=== PATIENT | female | born 1955 | race Caucasian/White ===

== ENCOUNTER 2019-10-06 10:30 | Observation (INO) | payer BC ==
[2019-10-06] MEDS ORDERED: METOPROLOL TAR 50 MG TAB ONE ×2 (11:14→11:15)
[2019-10-06 11:26] LABS: Absolute Lymphocytes (CBC) 1.8 K/uL (0.7-4.9); Basophils % 0.9 % (0-1.3); Hematocrit 38.8 % (36.0-45.0); Lymphocytes % 23.4 % (15.3-44.8); MPV 7.8 fL (7.6-11.3); RBC Red Blood Cell Count 4.44 M/uL (3.86-4.86)
[2019-10-06 11:40] LABS: Protime INR 1.04
--- NOTE | 2019-10-06 11:47 | ER ---
Nurse's Notes [facility] Name: Angela Walker Age: 64 yrs Sex: Female : 1955 Arrival Date: 10/06/2019 Time: 10:35 Bed 2 Private MD: Diagnosis: Chest pain, unspecified;Angina pectoris;Dyspnea;Essential (primary) hypertension Presentation: 10/06 10:37 Presenting complaint: Substernal chest pressure that radiates to right neck since last hb night. Also reports mild SOB. Denies cough/fever. Transition of care: patient was not received from another setting of care. Onset of symptoms was October 05, 2019. Risk Assessment: Do you want to hurt yourself or someone else? Patient reports no desire to harm self or others. Care prior to arrival: None. 10:37 Method Of Arrival: Ambulatory hb 10:37 Acuity: ANASTASIA 3 hb 10:49 Initial Sepsis Screen: Does the patient meet any 2 criteria? No. Patient's initial ph sepsis screen is negative. Does the patient have a suspected source of infection? No. Patient's initial sepsis screen is negative. Historical: - Allergies: 10:40 Latex, Natural Rubber; hb - Home Meds: 10:40 metoprolol tartrate 50 mg Oral tab 1 tab 2 times per day [Active]; etodolac 500 mg Oral hb tab as needed [Active]; - PMHx: 10:40 Arthritis; RAPID HEART RATE; Sleep Apnea; hb - PSHx: 10:40 Tubal ligation; ROTATOR CUFF; hb - Immunization history:: Adult Immunizations up to date. - Social history:: Smoking status: Patient/guardian denies using tobacco. - Ebola Screening: : No symptoms or risks identified at this time. - Family history:: not pertinent. Screenin:48 Abuse screen: Denies threats or abuse. Denies injuries from another. Nutritional ph screening: No deficits noted. Tuberculosis screening: No symptoms or risk factors identified. Fall Risk None identified. Assessment: 11:25 General: Appears in no apparent distress. comfortable, obese, well groomed, Behavior is ph calm, cooperative, appropriate for age, Denies fever, feeling ill. Pain: Complains of pain in chest Pain radiates to neck Pain currently is 1 out of 10 on a pain scale. Quality of pain is described as pressure, Pain began 1 day ago. Neuro: Level of Consciousness is awake, alert, obeys commands, Oriented to person, place, time, situation, Denies weakness dizziness. Cardiovascular: Reports chest pain, shortness of breath, Denies fatigue, lightheadedness, nausea, vomiting, Capillary refill < 3 seconds in bilateral fingers Patient's skin is warm and dry. Chest pain quality is pressure, is located in substernal area radiates to right neck. Respiratory: Reports shortness of breath on exertion Airway is patent Respiratory effort is even, unlabored, Respiratory pattern is regular, symmetrical. GI: No signs and/or symptoms were reported involving the gastrointestinal system. Derm: Skin is intact, Skin is pink, warm \T\ dry. Musculoskeletal: Circulation, motion, and sensation intact. Range of motion: intact in all extremities. 12:30 Reassessment: Patient appears in no apparent distress at this time. Patient and/or ph family updated on plan of care and expected duration. Pain level reassessed. Patient is alert, oriented x 3, equal unlabored respirations, skin warm/dry/pink. 13:30 Reassessment: Patient appears in no apparent distress at this time. Patient and/or ph family updated on plan of care and expected duration. Pain level reassessed. Patient is alert, oriented x 3, equal unlabored respirations, skin warm/dry/pink. 14:30 Reassessment: Patient appears in no apparent distress at this time. No changes from ph previously documented assessment. Patient and/or family updated on plan of care and expected duration. Pain level reassessed. Patient is alert, oriented x 3, equal unlabored respirations, skin warm/dry/pink. 15:26 Reassessment: Patient appears in no apparent distress at this time. Patient and/or ph family updated on plan of care and expected duration. Pain level reassessed. Patient is alert, oriented x 3, equal unlabored respirations, skin warm/dry/pink. Report called to Lea AMIN. Vital Signs: 10:38 BP 157 / 80; Pulse 75; Resp 16; Temp 97.3; Pulse Ox 97% on R/A; Weight 103.87 kg; hb Height 5 ft. 3 in. (160.02 cm); Pain 2/10; 11:45 BP 148 / 78; Pulse 70; Resp 18; Pulse Ox 98% on R/A; ph 13:18 BP 140 / 69; Pulse 69; Resp 18; Pulse Ox 98% on R/A; Pain 1/10; ph 14:19 BP 120 / 67; Pulse 66; Resp 18; Temp 97.2; Pulse Ox 98% on R/A; ph 15:27 BP 132 / 72; Pulse 69; Resp 18; Temp 97.2; Pulse Ox 98% on R/A; ph 10:38 Body Mass Index 40.57 (103.87 kg, 160.02 cm) hb ED Course: 10:35 Patient arrived in ED. mr 10:38 Triage completed. hb 10:38 Arm band placed on. hb 10:43 Sonya Jaime, RN is Primary Nurse. ph 10:48 Patient has correct armband on for positive identification. Bed in low position. Call ph light in reach. Side rails up X 1. playground monitor on. Pulse ox on. NIBP on. Door closed. Noise minimized. Warm blanket given. 10:49 Delio Waterman MD is Attending Physician. marisol 11:10 Inserted saline lock: 22 gauge in right antecubital area, using aseptic technique. ph Blood collected. Patient maintains SpO2 saturation greater than 95% on room air. 11:19 EKG done, by cytotechnologist/histotechnologist. reviewed by Delio Waterman MD. at1 11:40 Perry Shrestha is Hospitalizing Provider. marisol 11:41 No provider procedures requiring assistance completed. ph 15:30 Patient transferred, IV remains in place. ph Administered Medications: 11:40 Not Given (took 325 at home this am): Aspirin 162 mg PO once ph 13:18 Drug: PlaVIX 300 mg Route: PO; ph 15:28 Follow up: Response: No adverse reaction ph 13:18 Drug: Lovenox 100 mg Route: Sub-Q; Site: right lower abdomen; ph 15:28 Follow up: Response: No adverse reaction ph 13:18 Drug: Pepcid 20 mg Route: IVP; Site: right antecubital; ph 15:28 Follow up: Response: No adverse reaction ph 14:42 Not Given (Physician Discretion): Lopressor (metoprolol TARTRATE) 50 mg PO once jl7 Outcome: 11:40 Decision to Hospitalize by Provider. marisol 15:29 Admitted to Tele accompanied by tech, via wheelchair, room 201, with chart, Report ph called to Lea AMIN 15:29 Condition: stable 15:29 Instructed on the need for admit. 15:52 Patient left the ED. ph Signatures: Delio Waterman MD MD cha Rivera, Shayla Ev Gupta, veterinary attendant EKG Tat1 Sonya Jaime, BRENNAN RN ph Rossy Solorio RN RN Stanislav Warner RN jl7
--- NOTE | 2019-10-06 11:47 | EDPHYS ---
Physician Documentation [facility] Name: Angela Walker Age: 64 yrs Sex: Female : 1955 Arrival Date: 10/06/2019 Time: 10:35 Bed 2 Private MD: ED Physician Delio Waterman HPI: 10/06 11:37 This 64 yrs old Female presents to ER via Ambulatory with complaints of Chest marisol Pressure. 11:37 The patient or guardian reports chest pain that is located primarily in the substernal marisol area. Onset: 2 day(s) ago. The pain radiates to Associated signs and symptoms: The patient has no apparent associated signs or symptoms. The chest pain is described as a pressure. Severity of pain: At its worst the pain was mild in the emergency department the pain is unchanged. The patient has not experienced similar symptoms in the past. Historical: - Allergies: 10:40 Latex, Natural Rubber; hb - Home Meds: 10:40 metoprolol tartrate 50 mg Oral tab 1 tab 2 times per day [Active]; etodolac 500 mg Oral hb tab as needed [Active]; - PMHx: 10:40 Arthritis; RAPID HEART RATE; Sleep Apnea; hb - PSHx: 10:40 Tubal ligation; ROTATOR CUFF; hb - Immunization history:: Adult Immunizations up to date. - Social history:: Smoking status: Patient/guardian denies using tobacco. - Ebola Screening: : No symptoms or risks identified at this time. - Family history:: not pertinent. ROS: 11:37 Constitutional: Negative for fever, chills, and weight loss, Eyes: Negative for injury, marisol pain, redness, and discharge, ENT: Negative for injury, pain, and discharge, Neck: Negative for injury, pain, and swelling. 11:37 Cardiovascular: Positive for chest pain, of the chest. 11:37 Respiratory: Positive for shortness of breath. Exam: 11:37 Constitutional: This is a well developed, well nourished patient who is awake, alert, marisol and in no acute distress. Head/Face: Normocephalic, atraumatic. Eyes: Pupils equal round and reactive to light, extra-ocular motions intact. Lids and lashes normal. Conjunctiva and sclera are non-icteric and not injected. Cornea within normal limits. Periorbital areas with no swelling, redness, or edema. ENT: Nares patent. No nasal discharge, no septal abnormalities noted. Tympanic membranes are normal and external auditory canals are clear. Oropharynx with no redness, swelling, or masses, exudates, or evidence of obstruction, uvula midline. Mucous membranes moist. Neck: Trachea midline, no thyromegaly or masses palpated, and no cervical lymphadenopathy. Supple, full range of motion without nuchal rigidity, or vertebral point tenderness. No Meningismus. Chest/axilla: Normal chest wall appearance and motion. Nontender with no deformity. No lesions are appreciated. Cardiovascular: Regular rate and rhythm with a normal S1 and S2. No gallops, murmurs, or rubs. Normal PMI, no JVD. No pulse deficits. Respiratory: Lungs have equal breath sounds bilaterally, clear to auscultation and percussion. No rales, rhonchi or wheezes noted. No increased work of breathing, no retractions or nasal flaring. Abdomen/GI: Soft, non-tender, with normal bowel sounds. No distension or tympany. No guarding or rebound. No evidence of tenderness throughout. Back: No spinal tenderness. No costovertebral tenderness. Full range of motion. Skin: Warm, dry with normal turgor. Normal color with no rashes, no lesions, and no evidence of cellulitis. MS/ Extremity: Pulses equal, no cyanosis. Neurovascular intact. Full, normal range of motion. Neuro: Awake and alert, GCS 15, oriented to person, place, time, and situation. Cranial nerves II-XII grossly intact. Motor strength 5/5 in all extremities. Sensory grossly intact. Cerebellar exam normal. Normal gait. Psych: Awake, alert, with orientation to person, place and time. Behavior, mood, and affect are within normal limits. 11:37 Musculoskeletal/extremity: DVT Exam: No signs of deep vein thrombosis. no pain, no swelling, no tenderness, negative Homans' sign noted on exam, no appreciated bluish discoloration, no erythema, no increased warmth. Vital Signs: 10:38 BP 157 / 80; Pulse 75; Resp 16; Temp 97.3; Pulse Ox 97% on R/A; Weight 103.87 kg; hb Height 5 ft. 3 in. (160.02 cm); Pain 2/10; 11:45 BP 148 / 78; Pulse 70; Resp 18; Pulse Ox 98% on R/A; ph 13:18 BP 140 / 69; Pulse 69; Resp 18; Pulse Ox 98% on R/A; Pain 1/10; ph 14:19 BP 120 / 67; Pulse 66; Resp 18; Temp 97.2; Pulse Ox 98% on R/A; ph 15:27 BP 132 / 72; Pulse 69; Resp 18; Temp 97.2; Pulse Ox 98% on R/A; ph 10:38 Body Mass Index 40.57 (103.87 kg, 160.02 cm) hb MDM: 10:49 Patient medically screened. [facility] 11:39 Data reviewed: vital signs, nurses notes, lab test result(s), EKG, radiologic studies, marisol plain films. 10/06 10:51 Order name: Basic Metabolic Panel [facility] 10/06 10:51 Order name: CBC with Diff [facility] 10/06 10:51 Order name: LFT's [facility] 10/06 10:51 Order name: Magnesium [facility] 10/06 10:51 Order name: NT PRO-BNP [facility] 10/06 10:51 Order name: PT-INR [facility] 10/06 10:51 Order name: Troponin (emerg Dept Use Only) [facility] 10/06 10:51 Order name: TSH [facility] 10/06 10:51 Order name: Lipase [facility] 10/06 11:38 Order name: CBC with Automated Diff; Complete Time: 11:44 [facility] 10/06 11:43 Order name: Urine Dipstick--Ancillary (enter results) 10/06 11:51 Order name: Basic Metabolic Panel; Complete Time: 12:43 [facility] 10/06 11:51 Order name: Liver (Hepatic) Function; Complete Time: 12:43 [facility] 10/06 11:51 Order name: Troponin (Emerg Dept Use Only); Complete Time: 12:43 [facility] 10/06 10:51 Order name: XRAY Chest (1 view) [facility] 10/06 10:51 Order name: EKG; Complete Time: 10:54 [facility] 10/06 10:51 Order name: Cardiac monitoring; Complete Time: 11:27 [facility] 10/06 11:44 Order name: Echo w/ Doppler [facility] 10/06 11:51 Order name: NT PRO-BNP; Complete Time: 12:43 [facility] 10/06 11:51 Order name: Magnesium; Complete Time: 12:43 [facility] 10/06 11:51 Order name: Lipase; Complete Time: 12:43 [facility] 10/06 11:51 Order name: Thyroid Stimulating Hormone; Complete Time: 12:43 [facility] 10/06 11:51 Order name: Protime (+INR); Complete Time: 12:43 [facility] 10/06 11:51 Order name: Urine Dipstick-Ancillary; Complete Time: 12:43 [facility] 10/06 12:23 Order name: RAD; Complete Time: 12:43 [facility] 10/06 10:51 Order name: EKG - Nurse/Tech; Complete Time: 11:27 [facility] 10/06 10:51 Order name: IV Saline Lock; Complete Time: 11:27 [facility] 10/06 10:51 Order name: Labs collected and sent; Complete Time: 11:27 [facility] 10/06 10:51 Order name: O2 Per Protocol; Complete Time: 11:27 [facility] 10/06 10:51 Order name: O2 Sat Monitoring; Complete Time: 11:27 [facility] 10/06 10:51 Order name: Urine Dipstick-Ancillary (obtain specimen); Complete Time: 11:40 [facility] Administered Medications: 11:40 Not Given (took 325 at home this am): Aspirin 162 mg PO once ph 13:18 Drug: PlaVIX 300 mg Route: PO; ph 15:28 Follow up: Response: No adverse reaction ph 13:18 Drug: Lovenox 100 mg Route: Sub-Q; Site: right lower abdomen; ph 15:28 Follow up: Response: No adverse reaction ph 13:18 Drug: Pepcid 20 mg Route: IVP; Site: right antecubital; ph 15:28 Follow up: Response: No adverse reaction ph 14:42 Not Given (Physician Discretion): Lopressor (metoprolol TARTRATE) 50 mg PO once jl7 Disposition: 10/06/19 11:40 Hospitalization ordered by Perry Shrestha for Inpatient Admission. Preliminary diagnosis are Chest pain, unspecified, Angina pectoris, Dyspnea, Essential (primary) hypertension. - Bed requested for Telemetry/MedSurg (Inpatient). - Status is Inpatient Admission. ph - Condition is Stable. - Problem is new. - Symptoms have improved. UTI on Admission? No Signatures: Dispatcher [employer] EDMS DirriJudith martinez Corey, MD MD cha Hall, Patricia, RN RN ph Rossy Solorio, RN RN Stanislav Warner RN jl7 Corrections: (The following items were deleted from the chart) 13:36 11:40 Hospitalization Ordered by Perry Shrestha for Inpatient Admission. Preliminary bd diagnosis is Chest pain, unspecified; Angina pectoris; Dyspnea; Essential (primary) hypertension. Bed requested for Telemetry/MedSurg (Inpatient). Status is Inpatient Admission. Condition is Stable. Problem is new. Symptoms have improved. UTI on Admission? No. marisol 15:52 13:36 10/06/2019 11:40 Hospitalization Ordered by Perry Shrestha for Inpatient ph Admission. Preliminary diagnosis is Chest pain, unspecified; Angina pectoris; Dyspnea; Essential (primary) hypertension. Bed requested for Telemetry/MedSurg (Inpatient). Status is Inpatient Admission. Condition is Stable. Problem is new. Symptoms have improved. UTI on Admission? No. bd
[2019-10-06 11:50] LABS: ALT/SGPT 39 U/L (12-78); AST/SGOT 16 U/L (15-37); Albumin 3.8 g/dL (3.4-5.0); Alkaline Phosphatase 56 U/L (45-117); BUN Blood Urea Nitrogen 9 mg/dL (7-18); Bicarbonate 28 mmol/L (21-32); Bilirubin Direct 0.1 mg/dL (0-0.2); Bilirubin Total 0.6 mg/dL (0.2-1.0); Glucose Level 111 mg/dL (74-106); Lipase 175 U/L (73-393); Magnesium 2.4 mg/dL (1.8-2.4); NT PRO-BNP 112 pg/mL (<125); Potassium 4.2 mmol/L (3.5-5.1); Protein, Total 7.3 g/dL (6.4-8.2); Sodium Level 142 mmol/L (136-145); Troponin (Emerg Dept Use Only) < 0.02 ng/mL (0.0-0.045)
[2019-10-06 11:50] LABS: Urine Blood TRACE (NEG); Urine Glucose NEGATIVE (NEG); Urine Protein NEGATIVE (NEG)
--- NOTE | 2019-10-06 12:13 | RAD REPORT ---
EXAM DESCRIPTION: RAD - Chest Single View - 10/06/2019 11:53 am CLINICAL HISTORY: COUGH Chest pain. COMPARISON: Chest Single View dated 11/03/2016 FINDINGS: Portable technique limits examination quality. The lungs are grossly clear. The heart is normal in size. No displaced fractures. IMPRESSION: No acute intrathoracic process suspected.
[2019-10-06] MEDS ORDERED: CLOPIDOGREL 75 MG TABLET ONE (12:53)
[2019-10-06] MEDS ORDERED: FAMOTIDINE 20 MG/2 ML VIAL IV ONE (12:54)
[2019-10-06] MEDS ORDERED: ENOXAPARIN 100 MG/ML SYR SQ ONE (12:54)
[2019-10-06] MEDS ORDERED: ACETAMINOPHEN 500 MG TAB PO PRN (15:34)
[2019-10-06] MEDS ORDERED: NITROGLYCERIN 0.4 MG/TAB SL PRN (15:34)
--- NOTE | 2019-10-06 16:02 | EKG ---
Test Date: 2019-10-06 Test Time: 11:04:21 Building Carpenter Helper: LEVAR MEASUREMENT RESULTS: Intervals: Rate: 66 AK: 162 QRSD: 154 QT: 420 QTc: 440 [place]: P: 57 AK: 162 QRS: -38 T: 91 INTERPRETIVE STATEMENTS: Normal sinus rhythm Left axis deviation Left bundle branch block Abnormal ECG Compared to ECG 11/23/2016 23:48:25 Left-axis deviation now present Sinus bradycardia no longer present Right superior axis no longer present Electronically Signed On 10-06-19 16:01:30 MILL ORDER SCHEDULER by Marko Nascimento
[2019-10-06 16:29] VITALS: BMI 39.2
[2019-10-06] MEDS: METOPROLOL TAR 50 MG TAB PO SCH (17:30)
--- NOTE | 2019-10-06 17:49 | P.HP ---
Certification for Inpatient Patient admitted to: Observation With expected LOS: <2 Midnights Practitioner: I am a practitioner with admitting privileges, knowledge of patient current condition, hospital course, and medical plan of care. Services: Services provided to patient in accordance with Admission requirements found in Title 42 Section 412.3 of the Code of Federal Regulations Patient History Date of Service: 10/06/19 Reason for admission: Chest pressure History of Present Illness: 64-year-old woman with a history of SVT in the past presented to the ED with complaint of chest pressure of onset 2 days ago. Patient states that her symptoms are also associated with intermittent palpation. She has had similar symptoms in the past which was evaluated with his nuclear stress test, and event monitor. She stated at one point her hl7 developer referred her to tobacco prevention health educator to be evaluated for cardiac ablation. In the ED, EKG reported left bundle branch block which is old. Initial troponin is negative. Chest x-ray demonstrates no acute change. CBC and BMP unremarkable. Patient is placed under observation for ACS rule out. Allergies Latex, Natural Rubber Allergy (Verified 11/03/16 19:32) Rash Home Medications: Metoprolol Tartrate 50 mg PO BID 6AM 6PM 10/06/19 Nitroglycerin [Nitrostat*] 0.4 mg SL UD PRN #30 tab 10/07/19 - Past Medical/Surgical History Has patient received pneumonia vaccine in the past: No Diabetic: No -: arthritis -: sleep apnea -: tubal ligation -: right side rotator cuff sx - Family History Mother -: Diabetes - Social History Smoking Status: Never smoker Alcohol use: Yes CD- Drugs: No Caffeine use: Yes Place of Residence: Home Review of Systems Other: General: No fever, no malaise, no unintentional weight loss. Eyes: No eye discharge, Respiratory: No cough, no shortness of breath. CVS: No lightheadedness. GI: No abdominal pain, no nausea no vomit, no constipation, no diarrhea. Genitourinary: No dysuria, no urinary frequency, no incontinence, no hematuria. Musculoskeletal: No joint pains, or joint swelling, no gait instability. Neurology: No headache, no asymmetric, weakness, no problem with swallowing. Except as documented, all other systems reviewed and negative. Physical Examination - Vital Signs Temperature: 98.1 F Blood Pressure: 139/69 Pulse: 88 Respirations: 15 Pulse Ox (%): 97 - Physical Exam General: Alert, In no apparent distress, Oriented x3, Obese HEENT: Normocephalic, PERRLA, Mucous membr. moist/pink Neck: Supple, JVD not distended Respiratory: Clear to auscultation bilaterally, Normal air movement, Diminished Cardiovascular: No edema, Regular rate/rhythm, Normal S1 S2, No murmurs Capillary refill: <2 Seconds Gastrointestinal: Normal bowel sounds, Soft and benign, No tenderness Musculoskeletal: No swelling Integumentary: No rashes Neurological: Normal speech, Normal strength at 5/5 x4 extr - Studies Laboratory Data (last 24 hrs) 10/06/19 11:10: PT 12.3, INR 1.04 10/06/19 11:10: WBC 7.8, Hgb 13.7, Hct 38.8, Plt Count 231 10/06/19 11:10: Sodium 142, Potassium 4.2, BUN 9, Creatinine 0.78, Glucose 111 H , Magnesium 2.4, Total Bilirubin 0.6, AST 16, ALT 39, Alkaline Phosphatase 56, Lipase 175 Assessment and Plan - Problems (Diagnosis) (1) Chest pain Status: Acute (2) Left bundle branch block Status: Chronic (3) Obesity Status: Chronic - Plan Place under observation Telemetry Trend troponin Cardiologic consult Screen for risk factors-check lipid profile Treat hypertension Nuclear stress test in am. Obtain echocardiogram. - Advance Directives Does patient have a Living Will: No Does patient have a Durable POA for Healthcare: No
[2019-10-06 18:56] LABS: HDL Cholesterol 49 mg/dL (40-60); LDL Cholesterol, Calculated 124 (<130); Troponin I < 0.02 ng/mL (0.0-0.045)
--- NOTE | 2019-10-06 21:08 | CON ---
History Of Present Illness: Ms. Walker is 64. She came to the hospital because of chest pain. The chest pain is atypical, fleeting pain, sometimes there is pressure, sometimes she feels her heart pa lpitate. We discovered SVT in the past, but there was not enough of it to warrant doing an ablation when she was given metoprolol and she has done very well, taking metoprolol. She has no history of m yocardial infarction, stroke, vascular disease. No diabetes. No dyslipidemia. She uses no tobacco, no alcohol, no illegal drugs. Physical Examination: Vital Signs: 5 feet 3 inches, 221 pounds. HEENT: Unremarkable. Lungs: Clear. Heart: Within normal limits. Abdomen: Soft. Extremities: Mild edema, distal pulses palpable. Allergies: SHE IS ALLERGIC TO LATEX AND NATURAL RUBBER, BUT NO MEDICATIONS. Diagnostic Studies: Her electrocardiogram shows sinus rhythm with left bundle-branch block. Recommendation: I have recommended to Ms. Walker that we do a pharmacologic nuclear stress test bogdan orrow. We will see if there is any sign of coronary atherosclerosis and if it is abnormal, we will r ecommend doing a cardiac cath the following day. ZACKARY/LORIE Voice ID: [id number] Report ID: [id number]
[2019-10-07 04:02] LABS: Absolute Lymphocytes (CBC) 2.7 K/uL (0.7-4.9); Basophils % 0.7 % (0-1.3); Hematocrit 37.6 % (36.0-45.0); Lymphocytes % 33.5 % (15.3-44.8); MPV 7.9 fL (7.6-11.3); RBC Red Blood Cell Count 4.26 M/uL (3.86-4.86)
[2019-10-07 04:17] LABS: Potassium 3.8 mmol/L (3.5-5.1)
[2019-10-07] MEDS: METOPROLOL TAR 50 MG TAB PO SCH ×2 (06:10→17:39)
[2019-10-07 06:14] VITALS: O2SAT 96
[2019-10-07] MEDS ORDERED: REGADENOSON 0.4 MG/5 ML SYR IV ONE (08:06)
[2019-10-07] MEDS ORDERED: ENOXAPARIN 40 MG/0.4 ML SQ SCH (09:00)
[2019-10-07] MEDS ORDERED: ASPIRIN EC 81 MG TAB PO SCH (09:00)
--- NOTE | 2019-10-07 12:07 | RAD REPORT ---
EXAM DESCRIPTION: NM - Rest Stress Cardiac Imaging - 10/07/2019 11:22 am CLINICAL HISTORY: Chest pain. COMPARISON: None. TECHNIQUE: The patient was administered approximately 10mCi of Tc 99m Sestamibi prior to resting SPE CT imaging of the heart. The patient was then administered approximately 30 mCi of Tc 99m Sestamibi f ollowing exercise or pharmacologic stress. Multiplanar SPECT images were reviewed. FINDINGS: There is uniformity of radiotracer uptake involving the entire left ventricular myocardiu m on rest and stress images. The left ventricular ejection fraction equals 59% IMPRESSION: Negative for a myocardial perfusion defect
--- NOTE | 2019-10-07 12:49 | P.DS ---
Admission Date: 10/06/19 Discharge Date: 10/07/19 Disposition: ROUTINE DISCHARGE Discharge Condition: GOOD Reason for Admission: Chest pressure Consultations: Cardiology - Problems (1) Chest pain Current Visit: Yes Status: Acute (2) Left bundle branch block Current Visit: Yes Status: Chronic (3) Obesity Current Visit: Yes Status: Chronic Brief History of Present Illness: 64-year-old woman with a history of SVT in the past presented to the ED with complaint of chest pressure of onset 2 days ago. Patient stated that her symptoms were also associated with intermittent palpation. She has had similar symptoms in the past which was evaluated with a nuclear stress test, and event monitor. She stated at one point her compensation advisor referred her to armature balancer to be evaluated for cardiac ablation. In the ED, EKG reported left bundle branch block which is old. Initial troponin was negative. Chest x-ray demonstrated no acute change. CBC and BMP unremarkable. Patient was placed under observation for ACS rule out. Hospital Course: Troponin trended came back negative. The patient was asymptomatic during the hospital stay. He was evaluated by Dr. Nascimento-cardiology, nuclear stress test was performed which was negative for ischemia. Her LDL cholesterol was up to 124. Lifestyle modification with low-fat low-cholesterol diet advised. ACS has been ruled out, patient is deemed clinically stable for discharge. Vital Signs/Physical Exam: Temp Pulse Resp BP Pulse Ox 97.9 F 58 17 117/59 L 95 10/07/19 08:00 10/07/19 08:00 10/07/19 08:00 10/07/19 08:00 10/07/19 08:00 General: Alert, In no apparent distress, Oriented x3 HEENT: Mucous membr. moist/pink Neck: JVD not distended Respiratory: Clear to auscultation bilaterally, Normal air movement Cardiovascular: No edema Gastrointestinal: Soft and benign, No tenderness Musculoskeletal: No swelling Neurological: Normal speech, Normal strength at 5/5 x4 extr Laboratory Data at Discharge: WBC 8.2 K/uL (4.3-10.9) 10/07/19 03:17 Hgb 13.2 g/dL (12.0-15.0) 10/07/19 03:17 Hct 37.6 % (36.0-45.0) 10/07/19 03:17 Plt Count 207 K/uL (152-406) 10/07/19 03:17 PT 12.3 SECONDS (9.5-12.5) 10/06/19 11:10 INR 1.04 10/06/19 11:10 Sodium 145 mmol/L (136-145) 10/07/19 03:17 Potassium 3.8 mmol/L (3.5-5.1) 10/07/19 03:17 BUN 13 mg/dL (7-18) 10/07/19 03:17 Creatinine 0.78 mg/dL (0.55-1.3) 10/07/19 03:17 Glucose 106 mg/dL (74-106) 10/07/19 03:17 Magnesium 2.4 mg/dL (1.8-2.4) 10/06/19 11:10 Total Bilirubin 0.6 mg/dL (0.2-1.0) 10/06/19 11:10 AST 16 U/L (15-37) 10/06/19 11:10 ALT 39 U/L (12-78) 10/06/19 11:10 Alkaline Phosphatase 56 U/L (45-117) 10/06/19 11:10 Troponin I < 0.02 ng/mL (0.0-0.045) 10/07/19 03:17 Triglycerides 227 mg/dL (<150) H 10/06/19 18:20 Cholesterol 218 mg/dL (<200) H 10/06/19 18:20 HDL Cholesterol 49 mg/dL (40-60) 10/06/19 18:20 Cholesterol/HDL Ratio 4.45 10/06/19 18:20 Lipase 175 U/L (73-393) 10/06/19 11:10 Home Medications: Metoprolol Tartrate 50 mg PO BID 6AM 6PM 10/06/19 Nitroglycerin [Nitrostat*] 0.4 mg SL UD PRN #30 tab 10/07/19 New Medications: Nitroglycerin [Nitrostat*] 0.4 mg SL UD PRN #30 tab PRN Reason: Pain Scale 2-4 (Mild) Diet: AHA Activity: Ad era Followup: Marko Nascimento MD [ACTIVE - CAN ADMIT] -
--- NOTE | 2019-10-07 14:04 | TREADPHA ---
DX: CHEST PAIN Date of Study: 10/07/2019 Ht: 5 3 Wt: 221 lb 7 oz Consulting Physician: SISSY MEDICATIONS: TYLENOL, ASPIRIN, PLAVIX, LOVENOX, LOPRESSOR HISTORY: 64 YEAR OLD FEMALE WITH COMPLAINTS OF CHEST PAIN. MEDICAL HISTORY OF ARTHRITIS, RAPID HEART RATE AND SLEEP APNEA. PHYSICIAL EXAMINATION: RESTING B.P.: 145/52 RESTING H.R.: 66 RESTING EKG: SINUS RHYTHM, LEFT BUNDLE BRANCH BLOCK. PROTOCOL: LEXISCAN EXERCISE TIME: 3:30 B.P. AT PEAK STRESS: 148/72 IMPRESSION: LEXISCAN INJECTED. CARDIOLITE INJECTED PER PROTOCOL. SEE NUCLEAR MEDICINE REPORT. NO SUPRAVENTRICULAR TACHYCARDIA. NO VENTRICULAR TACHYCARDIA. NO PREMATURE VENTRICULAR COMPLEXES. DENIED CHEST PAIN.
--- NOTE | 2019-10-07 15:16 | PN ---
Admitted to Dr. Shrestha on 10/06/2019 for atypical chest pain and palpitation. Today, she is feeling better. She has not had any more palpitations or chest pain. Echocardiogram is normal. She has lef t bundle-branch block. She had paradoxical septal wall motion, normal ejection fraction. Lexiscan i s pending. We will see what that shows prior to making any final decisions. PATRIA/LORIE Voice ID: [id number] Report ID: [id number]
[2019-10-15 14:39] VITALS: BP 139/69; TEMP 98.1
== END 2019-10-07 17:56 | disposition home or self-care (01) ==
LOC: ER 10:30 → ERHOLD 12:53 → 4TH 15:24 → ERHOLD 15:26 → 2ND 15:27
PROVIDERS: ADMIT Internal Medicine; ATTEND Internal Medicine
DX: R07.9 Chest pain, unspecified (principal); I44.7 Left bundle-branch block, unspecified; E66.9 Obesity, unspecified; Z68.39 Body mass index [BMI] 39.0-39.9, adult; Z91.040 Latex allergy status
CPT/HCPCS: 93005; 93017; 85025 ×2; 80048 ×2; 36415; 83735; 85610; 80061; 80076; 84443; 81003; 84484 ×4; 83690; 83880; 71045; 94760 ×3; 78452; 96372; 96374; 99285; J1650 ×2; J2785; A9500; G0378 ×3

== ENCOUNTER 2025-03-12 05:54 | Day surgery (SDC) | payer BC, OTHER ==
[2025-03-10 13:51] LABS: Anion Gap 7.1 mEq/L (5.0-15.0); Potassium 4.1 mEq/L (3.5-5.1)
[2025-03-10 14:03] LABS: Eosinophils % 0.8 % (0-4.4); Hematocrit 41.1 % (36.0-45.0); Hemoglobin 14.2 g/dL (12.0-15.0); Lymphocytes % 23.8 % (15.3-44.8); MCH 30.2 pg (27.0-35.0); MCHC 34.6 g/dL (32.0-36.0); MCV 87.3 fL (80-100); MPV 8.5 fL (7.6-11.3); Monocytes % 5.4 % (3.3-12.3); Neutrophils % 69.1 % (41.7-73.7); Platelets 224 thou/uL (152-406); RBC Red Blood Cell Count 4.71 M/uL (3.86-4.86); Red Cell Distribution Width 13.9 % (12.1-15.2)
[2025-03-10 14:04] LABS: Absolute Basophils 0.1 K/uL (0-0.5); Absolute Eosinophils 0.1 K/uL (0-0.5); Absolute Lymphocytes (CBC) 3.1 K/uL (0.7-4.9); Absolute Monocytes 0.7 K/uL (0.1-1.3); Absolute Neutrophil 8.9 K/uL (1.8-8.0); Basophils % 0.9 % (0-1.3); Nucleated Red Blood Cells % 0.2 % (0-0)
[2025-03-10 15:24] LABS: Anisocytosis 1+; Blood Morphology Comment NOTED (NOT SEEN); Platelet Estimate ADEQ; Poikilocytosis 1+; White Blood Cell Scan OK (OK)
[2025-03-12] MEDS ORDERED: LIDOCAINE HCL/EPINEPHRINE 20 ML MDV ONE (06:19)
[2025-03-12] MEDS: NA CHLORIDE 0.9% 1,000 ML ONE (06:20)
[2025-03-12] MEDS ORDERED: propofoL 200 MG/20 ML VIAL IV ONE (06:41)
[2025-03-12] MEDS ORDERED: FENTANYL CITR 100 MCG/2 ML ONE (06:41)
[2025-03-12] MEDS ORDERED: LIDOCAINE 1% MPF 5 ML VIAL ONE (06:41)
[2025-03-12] MEDS ORDERED: ONDANSETRON 4 MG/2 ML VIAL ONE (06:41)
[2025-03-12] MEDS ORDERED: MIDAZOLAM HCL 2 MG/2 ML INJ ONE (06:41)
[2025-03-12 09:40] VITALS: BP 121/65; TEMP 97; O2SAT 96
--- NOTE | 2025-03-17 12:48 | EKG ---
Test Date: 2025-03-10 Test Time: 13:14:02 Risk Control Analyst: HARIKA MEASUREMENT RESULTS: Intervals: Rate: 72 KS: 168 QRSD: 168 QT: 432 QTc: 473 Corder: P: 36 KS: 168 QRS: -75 T: 82 INTERPRETIVE STATEMENTS: Normal sinus rhythm Left axis deviation Left bundle branch block Abnormal ECG Compared to ECG 10/06/2019 11:04:21 No significant changes Electronically Signed On 03-17-25 12:32:39 CDT by Víctor Garza
== END 2025-03-12 08:50 | disposition home or self-care (01) ==
LOC: OR 05:54
PROVIDERS: ATTEND Obstetrics & Gynecology
PROC: 0UDB8ZX Extraction of Endometrium, Via Natural or Artificial Opening Endoscopic, Diagnostic (ICD-10-PCS; principal; 2025-03-12 07:00)
DX: N95.0 Postmenopausal bleeding (principal); N84.0 Polyp of corpus uteri
CPT/HCPCS: 93005; 85025; 80048; 36415; 82947; 88305; 58558; J2704; J2003; J2250; J3010; J2405; J7030